=== PATIENT | female | born 2000 | race Caucasian/White ===

== ENCOUNTER 2025-03-23 17:14 | Emergency (ER) | payer OTHER, SELFPAY ==
--- NOTE | 2025-03-23 17:17 | ED_ITS ---
HPI - General Adult General Time Seen by Provider: 17:17 Date Seen: 03/23/25 Chief complaint: Skin/Abscess/Foreign Body Stated complaint: throat tightening, rash on arms Time Seen by Provider: 03/23/25 17:16 Source: patient and other (friend) Mode of arrival: ambulatory Limitations: no limitations History of Present Illness HPI narrative: 24-year-old female who presents today with an itchy rash which is been going on for about a week. Also watery eyes, runny nose, and itchy throat. Denies cough or breathing difficulty, no nausea vomiting. No new soaps, lotions, detergents. Took Benadryl couple days ago but did not feel like it helped very much. Symptoms are constant but do tend to wax and wane. Related Data Previous Rx's ?Medication ?Instructions ?Recorded cetirizine 10 mg capsule (Zyrtec) 10 mg PO DAILY #7 ca ps 03/23/25 prednisone 10 mg tablets in a dose See Rx Instructions PO .COMPLEX 03/23/25 pack #31 ea Allergies Allergy/AdvReac Type Severity Reaction Status Date / Time No Known Drug Allergies Allergy Verified 03/23/25 17:18 Exam Narrative: Exam Narrative: General: Well-developed and well-nourished, no acute distress Head: Atraumatic and normocephalic Eyes: Pupils are equal reactive, extraocular motions intact, conjunctiva clear. No posterior pharyngeal erythema, swelling, exudate, ulcerations, or asymmetry ENT: External nose and ears are normal, posterior pharynx without erythema or exudate Neck: No midline cervical tenderness, full spontaneous range of motion the neck, trachea midline, no adenopathy Heart: Regular rate and rhythm no murmurs or thrills Lungs: Clear to auscultation bilaterally without wheezes or crackles Abdomen: Soft, nontender, nondistended with active bowel sounds Musculoskeletal: No tenderness, deformity, or edema Neurologic: Awake, alert, and oriented x3, no gross focal neurologic deficits, cranial nerves intact as tested Psych: Mood and affect are appropriate Skin: Diffuse urticarial rash on the upper and lower extremities as well as the back Const: Vital Signs, click to edit/add: Vital Signs - 24 hr 03/23/25 17:18 Temperature 97.9 F Pulse Rate [Pulse Oximeter] 89 Respiratory Rate 14 Blood Pressure [Ri ght Upper Arm] 107/61 Pulse Oximetry 98 Oxygen Delivery Me thod Room Air Course Course ED Course: Reviewed both [facility] and [facility] EHR, no prior records. Patient presents today with an itchy rash as well as watery eyes, runny nose, and itchy throat that has been going on for about a week. On exam vital is stable, no posterior pharyngeal erythema, ulcerations, or asymmetry to suggest her pain is not, [id number] disease, tonsillitis, or peritonsillar abscess. Lungs are clear, no abdominal pain or vomiting. Symptoms are most consistent with allergy, this could be a contact allergy although with the itchy eyes and runny nose, environmental allergy more likely. Patient will be started on prednisone burst and taper, scheduled Benadryl, Zyrtec. Stable for discharge. Vital Signs Vital signs: Initial Vital Signs Temperature 97.9 F 03/23/25 17:18 Temperature Source Temporal Artery Scan 03/23/25 17:18 Pulse Rate 89 03/23/25 17:18 Respiratory Rate 14 03/23/25 17:18 Blood Pressure 107/61 03/23/25 17:18 Blood Pressure Mean 76 03/23/25 17:18 Pulse Oximetry 98 03/23/25 17:18 Oxygen Delivery Method Room Air 03/23/25 17:18 Vital Signs Temperature 97.9 F 03/23/25 17:18 Pulse Rate 89 03/23/25 17:18 Respiratory Rate 14 03/23/25 17:18 Blood Pressure 107/61 03/23/25 17:18 Pulse Oximetry 98 03/23/25 17:18 Oxygen Delivery Method Room Air 03/23/25 17:18 Temperature 97.9 F 03/23/25 17:18 Pulse Rate 89 03/23/25 17:18 Respiratory Rate 14 03/23/25 17:18 Blood Pressure 107/61 03/23/25 17:18 Pulse Oximetry 98 03/23/25 17:18 Oxygen Delivery Method Room Air 03/23/25 17:18 Discharge Plan Discharge Clinical Impression: Allergic reaction Patient Disposition: Home, Self-Care Condition: Stable Instructions: General Allergic Reaction (ED) Additional Instructions: Take Zyrtec daily for 1 week as prescribed Take Benadryl every 6 hours for 24 hours and then every 6 hours as needed Take prednisone taper as prescribed Activity Level: No Restrictions Discharge Diet: Regular Prescriptions: New Zyrtec 10 mg capsule 10 mg PO DAILY Qty: 7 0RF prednisone 10 mg tablets,dose pack See Rx Instructions .ROUTE .COMPLEX Qty: 31 0RF Rx Instructions: Take 40 mg daily for 3 days, then 30 mg daily for 3 days, then 20 mg daily for 3 days, then 10 mg daily for 3 day, then 5 mg daily for 2 days Stand Alone Forms: Chatty Info Instructions, Work/School Release
[2025-03-23 17:18] VITALS: BP 107/61; PULSE 89; RESP 14; TEMP 36.6; O2SAT 98; BMI 23.7
== END 2025-03-23 17:57 | disposition home or self-care (01) ==
PROVIDERS: Emergency Provider Family Medicine
DX: R21 Rash and other nonspecific skin eruption (principal); T78.49XA Other allergy, initial encounter
CPT/HCPCS: 99283; A9270

== ENCOUNTER 2025-03-26 22:37 | Emergency (ER) | payer OTHER, SELFPAY ==
[2025-03-26 22:55] VITALS: BP 102/62; PULSE 96; RESP 16; TEMP 36.9; O2SAT 99; BMI 23.7
--- NOTE | 2025-03-26 23:05 | ED.GENADULT ---
HPI - General Adult General Chief complaint: Allergic Reaction Stated complaint: allergic reaction Time Seen by Provider: 03/26/25 22:46 History of Present Illness HPI narrative: Patient returns to [place] ER with c/o continued generalized itching rash, sore throat x 10 days. Patient states she developed fever today. Patient states the medication she was given did not help ( prednisone, benadryl, zyrtec). A [place] [employer] translator was used for this this conversation. 24-year-old young woman returning to the emergency department with concern itchy rash. Sore throat as well. This is now been going on for almost 2 weeks. The rash waxes and wane but are persistent and do itch but more bothersome perhaps is the burning that she experiences when they flare in particular. They do burn on her hands and upper back she notes. Aggravating and has been difficult to sleep. Similar amount of rash is present since began on the inner forearms. No cough or cold symptoms otherwise. No dysuria or hematuria. Seen 4 days ago in this emergency department and was started a long course of prednisone with a taper and diphenhydramine and Zyrtec. She has been taking her prednisone as prescribed having completed 40 mg daily over the 1st 3 days. Minimal change. Related Data Previous Rx's ?Medication ?Instructions ?Recorded cetirizine 10 mg capsule (Zyrtec) 10 mg PO DAILY #7 caps 03/23/25 prednisone 10 mg tablets in a dose See Rx Instructions PO .COMPLEX 03/23/25 pack #31 ea Allergies Allergy/AdvReac Type Severity Reaction Status Date / Time No Known Drug Allergies Allergy Verified 03/27/25 01:10 Review of Systems Status of ROS: Reports: 6 or more systems reviewed and unremarkable except as noted in History and below [facility] Social History Smoking Status: Never smoker How often do you have a drink containing alcohol: never AUDIT-C Alcohol total score: 0 Non-prescribed substance use: denies use service: No Exam Narrative: Exam Narrative: Pleasant. NAD. Generally erythematous speckling to confluent rash more speckled over the inner arms and forearms. Back of her hands. Does not look like scarlatina. Is over back and right thigh as well. Urticarial in nature in some areas. Oropharynx is moist without particular erythema. Wearing braces. No cervical lymphadenopathy. Lungs are clear. No stridor. Heart in elevated rate and regular rhythm. No murmur rub or gallop. Const: Vital Signs, click to edit/add: Vital Signs - 24 hr 03/26/25 22:55 Temperature 98.5 F Pulse Rate [Right Pulse Oximeter] 96 Respiratory Rate 16 Blood Pressure [Ri ght Upper Arm] 102/62 Pulse Oximetry 99 Oxygen Delivery Me thod Room Air Documenting provider has reviewed patient's vital signs: yes Course Vital Signs Vital signs: Initial Vital Signs Temperature 98.5 F 03/26/25 22:55 Temperature Source Temporal Artery Scan 03/26/25 22:55 Pulse Rate 96 03/26/25 22:55 Pulse Rhythm Regular 03/26/25 22:55 Respiratory Rate 16 03/26/25 22:55 Blood Pressure 102/62 03/26/25 22:55 Blood Pressure Mean 75 03/26/25 22:55 Blood Pressure Position Sitting 03/26/25 22:55 Pulse Oximetry 99 03/26/25 22:55 Oxygen Delivery Method Room Air 03/26/25 22:55 Vital Signs Temperature 98.5 F 03/26/25 22:55 Pulse Rate 96 03/26/25 22:55 Respiratory Rate 16 03/26/25 22:55 Blood Pressure 102/62 03/26/25 22:55 Pulse Oximetry 99 03/26/25 22:55 Oxygen Delivery Method Room Air 03/26/25 22:55 Temperature 98.5 F 03/26/25 22:55 Pulse Rate 94 03/27/25 01:21 Respiratory Rate 18 03/27/25 01:21 Blood Pressure 109/73 03/27/25 01:21 Pulse Oximetry 99 03/26/25 22:55 Oxygen Delivery Method Room Air 03/26/25 22:55 Medical Decision Making MDM Narrative Medical decision making narrative: Admit admit I am a little stumped. Symptomatic treatment or typical blunt treatment for urticarial eruption does not appear to be working. Presumably viral process but I would check for strep in this case as might have something further to treat. No other triggering factors, allergy apparent. Strep swab was indeed positive. Discussed treatment options. Preference is for oral. Does not have symptoms otherwise, swelling of extremities or symptoms in the urine to suggest glomerulonephritis or nephropathy. See patient discharge plan for further discussion I do think that this rash you are experiencing could well be related to an undertreated streptococcal infection. This could also be causing the sore throat that you experienced. My hope is that treating this infection will help your rash go away. You might still need to take the Benadryl (also known as diphenhydramine), for breakthrough itch or rash. I am prescribing you a course of an antibiotic, penicillin, from [facility]. You can continue the prednisone to complete a total of 7-8 days taking it as prescribed until that point. We also discussed the irritation that you are experiencing from the rash. Temporary treatment with Ativan (also known is lorazepam) can be helpful. I am prescribing this from [facility] as well. As many families keep their toothbrushes in close vicinity, recommendations are to place all toothbrushes in boiling water for 3 minutes. Separate yours from everyone else's and boil your toothbrush every 3 days through the 10 day course of penicillin Medical Records Medical records reviewed: Yes I reviewed the patient's medical records Lab Data Lab results reviewed: Yes I reviewed the patient's lab results Labs: Lab Results 03/26/25 Range/Units 23:55 Group A Strep DNA DETECTED A (Not Detectd) Discharge Plan Discharge Clinical Impression: Strep pharyngitis, Urticaria Patient Disposition: Home, Self-Care Condition: Stable Additional Instructions: I do think that this rash you are experiencing could well be related to an undertreated streptococcal infection. This could also be causing the sore throat that you experienced. My hope is that treating this infection will help your rash go away. You might still need to take the Benadryl (also known as diphenhydramine), for breakthrough itch or rash. I am prescribing you a course of an antibiotic, penicillin, from [facility]. You can continue the prednisone to complete a total of 7-8 days taking it as prescribed until that point. We also discussed the irritation that you are experiencing from the rash. Temporary treatment with Ativan (also known is lorazepam) can be helpful. I am prescribing this from [facility] as well. As many families keep their toothbrushes in close vicinity, recommendations are to place all toothbrushes in boiling water for 3 minutes. Separate yours from everyone else's and boil your toothbrush every 3 days through the 10 day course of penicillin Creo que el sarpullido que experimenta podr?a estar relacionado con hallie infecci?n estreptoc?cica mal tratada. Wauna tambi?n podr?a estar causando el dolor de garganta que experiment?. Espero que tratar esta infecci?n ayude a que el sarpullido desaparezca. Es posible que a?n necesite luisa Benadryl (tambi?n conocido christopher difenhidramina) para la picaz?n o el sarpullido. Le estoy recetando un tratamiento con un antibi?curtis, penicilina, de [facility]. Puede continuar con la prednisona isaak 7-8 d?as, alcon?ndola seg?n lo prescrito hasta entonces. Tambi?n hablamos sobre la irritaci?n que experimenta por el sarpullido. Un tratamiento temporal con Ativan (tambi?n conocido christopher lorazepam) puede ser ?til. Tambi?n se lo estoy recetando de [facility]. Christopher muchas familias mantienen james cepillos de dientes cerca, se recomienda colocarlos en agua hirviendo isaak 3 minutos. Separe el suyo del de los dem?s y hierva cohn cepillo de dientes cada 3 d?as isaak el tratamiento de 10 d?as con penicilina. Prescriptions: No Action Zyrtec 10 mg capsule 10 mg PO DAILY Qty: 7 0RF prednisone 10 mg tablets,dose pack See Rx Instructions .ROUTE .COMPLEX Qty: 31 0RF Rx Instructions: Take 40 mg daily for 3 days, then 30 mg daily for 3 days, then 20 mg daily for 3 days, then 10 mg daily for 3 day, then 5 mg daily for 2 days Follow Up/Referrals: Provider,Not a Local [Primary Care Provider, Family Practice] Stand Alone Forms: MyHealth Info Instructions
[2025-03-27 00:27] LABS: Strep A DNA Probe* DETECTED (Not Detectd)
[2025-03-27 01:21] VITALS: BP 109/73; PULSE 94; RESP 18
== END 2025-03-27 01:23 | disposition home or self-care (01) ==
PROVIDERS: Emergency Provider Family Medicine
DX: J02.0 Streptococcal pharyngitis (principal); T78.40XA Allergy, unspecified, initial encounter; I50.9 Heart failure, unspecified
CPT/HCPCS: 87651; 99283; 99284